=== PATIENT | male | born 1995 | race Caucasian/White ===

== ENCOUNTER 2019-05-08 14:23 | Emergency (ER) | payer SELFPAY ==
[~2019-05-08] VITALS: Ht 162.6 cm; Wt 56.0 kg
[2019-05-08 14:28] VITALS: BP 109/75
== END 2019-05-08 20:35 | disposition left against medical advice (07) ==
LOC: ER 14:23
DX: R10.9 Unspecified abdominal pain (principal); Z53.21 Procedure and treatment not carried out due to patient leaving prior to being seen by health care provider